=== PATIENT | female | born 1960 | race Caucasian/White ===

== ENCOUNTER → 2016-12-09 | Outpatient (CLI) | payer BC ==
[~2016-12-09] VITALS: Ht 172.7 cm; Wt 59.1 kg
[~2016-12-09] MED LIST: BCPILLS PO; HYDR-600 PO; METO1TAB69 PO
[2016-12-09 12:37] VITALS: BP 132/84; PULSE 123; Ht 172.7 cm; Wt 59.1 kg
== END | disposition home or self-care (01) ==
LOC: C.NEUR 12:29
PROVIDERS: ATTEND Internal Medicine Pulmonary Disease
DX: G25.81 Restless legs syndrome (principal)

== ENCOUNTER → 2017-05-11 | Outpatient (CLI) | payer BC ==
[~2017-05-11] MED LIST changes: +METO100T44 PO; -METO1TAB69 PO
--- NOTE | 2017-05-11 16:39 | MAMMOGRAPHY REPORT ---
BILATERAL DIGITAL SCREENING MAMMOGRAM TOMOSYNTHESIS WITH CAD: 05/11/2017 CLINICAL HISTORY: Routine screening examination. TECHNIQUE: Breast tomosynthesis in addition to standard 2D mammography was performed. Current study was also evaluated with a Computer Aided Detection (CAD) system. COMPARISON: Comparison is made to exams dated: 08/22/2015 mammogram, 07/16/2014 mammogram - [facility], 10/05/2011 mammogram, 09/22/2010 mammogram - [facility], and 04/18/2008. BREAST COMPOSITION: The tissue of both breasts is heterogeneously dense, which may obscure small mas ses. FINDINGS: There is a questionable area of architectural distortion in the lateral posterior right br east, best seen on the CC view but thought to project superiorly on the MLO view. Although this coul d represent overlapping fibrolinear markings, additional spot compression tomosynthesis views and pos sibly ultrasound are recommended. No other suspicious mass, architectural distortion or cluster of microcalcifications is seen bilatera lly. IMPRESSION: ACR BI-RADS CATEGORY 0: INCOMPLETE EVALUATION: NEED ADDITIONAL IMAGING EVALUATION The questionable area of architectural distortion in the lateral right breast needs additional evalua tion. The patient will be called to schedule an appointment. Approximately 10% of breast cancers are not detected with mammography. A negative mammographic report should not delay biopsy if a clinically suggestive mass is present. Gillian Lynn M.D. ay/:05/11/2017 16:28:46 Knocker Out: Chelsi POP(Adrianne)(Bruna), [facility] letter sent: Addl Imaging 0 BI-RADS Code: ACR BI-RADS Category 0: Incomplete Evaluation: Need Additional Imaging Evaluation
== END | disposition home or self-care (01) ==
LOC: C.MAMM 15:52
PROVIDERS: ATTEND Family Medicine
DX: Z12.31 Encounter for screening mammogram for malignant neoplasm of breast (principal); R92.8 Other abnormal and inconclusive findings on diagnostic imaging of breast